=== PATIENT | female | born 1945 | race Caucasian/White ===

== ENCOUNTER 2016-09-27 10:32 | Outpatient (CLI) | payer MEDICARE | END 2016-09-27 10:33 | disposition home or self-care (01) | DX: Z00.00 Encounter for general adult medical examination without abnormal findings (principal); E55.9 Vitamin D deficiency, unspecified; E78.5 Hyperlipidemia, unspecified; E03.2 Hypothyroidism due to medicaments and other exogenous substances ==

== ENCOUNTER 2016-09-29 13:36 | Outpatient (CLI) | payer MEDICARE | END 2016-09-29 13:37 | disposition home or self-care (01) | DX: Z12.31 Encounter for screening mammogram for malignant neoplasm of breast (principal) ==

== ENCOUNTER 2017-07-27 09:20 | Outpatient (CLI) | payer MEDICARE ==
[2017-07-27 18:00] LABS: CHOL/HDL RATIO 3.3 (<4.4); CHOLESTEROL 193 mg/dL; HDL CHOLESTEROL 59 mg/dL; LDL/HDL RATIO 1.3 (<4.4); TRIGLYCERIDES 273 mg/dL; VLDL CHOLESTEROL 55 mg/dL
== END 2017-07-27 09:21 | disposition home or self-care (01) ==
LOC: LAB.F 09:20
PROVIDERS: ATTEND Internal Medicine
DX: E55.9 Vitamin D deficiency, unspecified (principal); E78.5 Hyperlipidemia, unspecified
CPT/HCPCS: 36415; 80061; 82306; 86376

== ENCOUNTER 2017-08-12 14:25 | Outpatient (CLI) | payer MEDICARE ==
--- NOTE | 2017-08-14 09:21 | MRI Report ---
EXAM: RIGHT SHOULDER MRI WITHOUT CONTRAST EXAM DATE: 08/12/2017 04:06 PM. CLINICAL HISTORY: Right shoulder pulled towards the ground. Pain with decreased range of motion. COMPARISON: None. TECHNIQUE: Multiplanar, multisequence T1-weighted and fluid-sensitive sequences of the shoulder witho ut contrast. Other: None. FINDINGS: Acromioclavicular Region: The acromion is type II. There is moderate acromioclavicular joint osteoart hritis. Moderate fluid in the subacromial bursa. Glenohumeral Region: There is mild thinning of the hyaline cartilage of the glenohumeral joint. There are subchondral cysts in the anterior and posterior surfaces of the humeral head. The bony glenoid a ppears unremarkable. There is a moderate-sized joint effusion with a large subscapular bursal effusio n. Bone Marrow: See above. Labrum: The labrum is unremarkable on this nonarthrographic study. Musculature/Rotator Cuff: There is thickening and increased T2 signal in supraspinatus consistent wit h tendinosis. There is a high-grade partial-thickness tear of the musculotendinous junction of supras pinatus measuring approximately 5 x 6 mm. There is a separate, 4 mm x 4 mm partial-thickness tear of the insertional fibers of supraspinatus which almost extends through the full-thickness of the tendon . There is thickening and increased T2 signal in the subscapularis consistent with moderate tendinosi s. There is a high-grade partial-thickness tear of the deep fibers at the insertion. Biceps Tendon: There is increased T2 signal in the long head of biceps with partial thickness tearing in the rotator interval. The tendon is slightly medially subluxed. Other: The subcutaneous tissues are unremarkable. IMPRESSION: 1. Moderate acromioclavicular joint osteoarthritis. 2. There is a moderate-sized joint effusion with fluid in the subscapularis bursa. 3. There is mild glenohumeral osteoarthritis. 4. Supraspinatus tendinosis with 2 high-grade partial-thickness tears. 5. Subscapularis tendinosis with high-grade partial thickness tear of the deep fibers. 6. Tendinosis and partial-thickness tearing of the proximal long head of biceps with mild medial subl uxation. [facility] MUSCULOSKE[facility] SECTION Referring Provider Line: [phone] SITE ID: [id number]
== END 2017-08-12 14:26 | disposition home or self-care (01) ==
LOC: DI 14:25
PROVIDERS: ATTEND Internal Medicine
DX: M19.011 Primary osteoarthritis, right shoulder (principal); M25.411 Effusion, right shoulder; M75.101 Unspecified rotator cuff tear or rupture of right shoulder, not specified as traumatic; S46.111A Strain of muscle, fascia and tendon of long head of biceps, right arm, initial encounter

== ENCOUNTER 2018-08-08 12:59 | Outpatient (CLI) | payer MEDICARE, MEDICAID ==
--- NOTE | 2018-08-08 14:27 | XRAY Report ---
Reason: COUGH Procedure Date: 08/08/2018 Accession Number: [id number] / [id number] Procedure: XR - Chest 2 View X-Ray CPT Code: 48485 FULL RESULT: EXAM: CHEST RADIOGRAPHY EXAM DATE: 08/08/2018 01:40 PM. CLINICAL HISTORY: Cough. COMPARISON: None. TECHNIQUE: 2 views. FINDINGS: Lungs/Pleura: No focal opacities evident. No pleural effusion. No pneumothorax. Flattened diaphragms and markedly increased lung volumes, possibly COPD. Mediastinum: Heart and mediastinal contour within normal limits. Other: None. IMPRESSION: Question COPD with no focal consolidation at this time. [facility]
== END 2018-08-08 13:00 | disposition home or self-care (01) ==
LOC: DI 12:59
PROVIDERS: ATTEND Nurse Practitioner Family
DX: R05 Cough (principal)
CPT/HCPCS: 71046

== ENCOUNTER 2018-08-12 12:57 | Outpatient (CLI) | payer MEDICARE, MEDICAID | END 2018-08-12 12:58 | disposition home or self-care (01) | LOC: RT 12:57 | PROVIDERS: ATTEND Nurse Practitioner Family | DX: R05 Cough (principal) | CPT/HCPCS: 94010 ==

== ENCOUNTER 2018-08-21 15:23 | Observation (INO) | payer MEDICARE, MEDICAID ==
[2018-08-21 15:59] LABS: BILIRUBIN,URINE NEGATIVE (NEGATIVE); GLUCOSE, URINE (UA) NEGATIVE (NEGATIVE); KETONES,URINE (UA) NEGATIVE (NEGATIVE); LEUKOCYTE ESTERASE, URINE NEGATIVE (NEGATIVE); NITRITE,URINE NEGATIVE (NEGATIVE); OCCULT BLOOD,URINE NEGATIVE (NEGATIVE); PH,URINE 5.5 PH (5.0-7.5); PROTEIN,URINE NEGATIVE (NEGATIVE); UROBILINOGEN,URINE 0.2 (NORMAL) E.U./dL (NORMAL)
[2018-08-21 16:04] LABS: CLARITY,URINE CLEAR (CLEAR)
--- NOTE | 2018-08-21 16:08 | ED Physician Documentation ---
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 METAL WELDER: section - Present Medications Home Medications: Ambulatory Orders Medication Instructions Recorded Confirmed No Known Home Medications 08/21/18 08/21/18 - Allergies Allergies/Adverse Reactions: Allergies Allergy/AdvReac Type Severity Reaction Status Date / Time ciprofloxacin [From Cipro] AdvReac Hives Verified 08/21/18 15:30 - Social History Does the pt smoke?: No Smoking Status: Never smoker Does the pt drink ETOH?: Yes Does the pt have substance abuse?: No - Immunizations Immunizations are current?: Yes - POLST Patient has POLST: No PD ED PE NORMAL - Vitals Vital signs reviewed: Yes - General General: Alert and oriented X 3 - HEENT HEENT: PERRL, EOMI, Other (no field cut no dyscongugate EOMI, ) - Neck Neck: Supple, no meningeal sign - Cardiac Cardiac: RRR - Respiratory Respiratory: No respiratory distress - Abdomen Abdomen: Soft, Non tender - Neuro Neuro: Alert and oriented X 3, No sensory deficit, Normal speech. 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 (slight facial droop not new per pt, double vison but no field cut, nl EOMI, nl hearing, speech nl now), No motor deficit (face is baseline) Eye Opening: Spontaneous Motor: Obeys Commands Verbal: Oriented GCS Score: 15 Results - Vitals Vitals: Vital Signs - 24 hr 08/21/18 15:26 Temperature 36.8 C Heart Rate 85 Respiratory 16 Rate Blood Pressure 144/89 H O2 Saturation 99 Oxygen O2 Source Room air - EKG (time done) 1558 Rate: Rate (enter#) Rhythm: NSR Intervals: Normal MT QRS: Normal Ischemia: Normal ST segments - Labs Labs: Laboratory Tests 08/21/18 08/21/18 08/21/18 15:50 16:21 16:21 WBC 5.5 RBC 4.62 Hgb 14.1 Hct 42.8 MCV 92.7 MCH 30.6 MCHC 33.0 RDW 13.9 Plt Count 204 MPV 7.4 L Neut # (Auto) 3.9 Lymph # (Auto) 0.9 L Crane # (Auto) 0.4 Eos # (Auto) 0.2 Baso # (Auto) 0.0 Absolute Nucleated RBC 0.00 Nucleated RBC % 0.1 PT 10.9 INR 1.0 Sodium Potassium Chloride Carbon Dioxide Anion Gap BUN Creatinine Estimated GFR (MDRD) Glucose Calcium Urine Color YELLOW Urine Clarity CLEAR Urine pH 5.5 Ur Specific [place] >=1.030 H Urine Protein NEGATIVE Urine Glucose (UA) NEGATIVE Urine Ketones NEGATIVE Urine Occult Blood NEGATIVE Urine Nitrite NEGATIVE Urine Bilirubin NEGATIVE Urine Urobilinogen 0.2 (NORMAL) Ur Leukocyte Esterase NEGATIVE Ur Microscopic Review NOT INDICATED Urine Culture Comments NOT INDICATED 08/21/18 16:21 WBC RBC Hgb Hct MCV MCH MCHC RDW Plt Count MPV Neut # (Auto) Lymph # (Auto) Crane # (Auto) Eos # (Auto) Baso # (Auto) Absolute Nucleated RBC Nucleated RBC % PT INR Sodium 134 L Potassium 3.4 L Chloride 101 Carbon Dioxide 23 Anion Gap 10.0 BUN 14 Creatinine 0.8 Estimated GFR (MDRD) 71 L Glucose 87 Calcium 9.1 Urine Color Urine Clarity Urine pH Ur Specific Ren[place] Urine Protein Urine Glucose (UA) Urine Ketones Urine Occult Blood Urine Nitrite Urine Bilirubin Urine Urobilinogen Ur Leukocyte Esterase Ur Microscopic Review Urine Culture Comments - Rads (name of study) CTH Radiology: See rad report (no acute process) PD MEDICAL DECISION MAKING - ED course ED course: double vision for approx 24 hr and int expressive aphasia CTH neg EKG NSR labs fine merits MRI echo vessel imaging serial neuro exam spoke to hospitalist Dr Ayala at [address] in obs Departure - Departure Disposition: ED Place in Observation Clinical Impression: Diplopia Condition: Good Discharge Date/Time: 08/21/18 19:05 NIHSS - Time Time: 16:00 - Level of Consciousness Level of consciousness: (0) Alert, Keenly responsive LOC Questions: (0) Answers both Q's correct LOC Commands: (0) Performs both correctly - Gaze Best Gaze: (0) Normal - Visual Visual: (0) No loss - Facial Palsy Facial Palsy: (1) Minor paralysis (not new) - Motor Arms (both separate) Motor Arm (right): (0) No drift Motor Arm (left): (0) No drift - Motor Legs (both separate) Motor Leg (right): (0) No drift Motor Leg (left): (0) No drift - Limb Ataxia Limb Ataxia: (0) Absent - Sensory Sensory: (0) Normal - Best Language Best Language: (0) No aphasia - Dysarthria Dysarthria: (0) Normal - Extinction and Inattention (formally neg Extinction and inattention: (0) No abnormality - Total Score/Results Total Score/Result: 1
[2018-08-21 16:29] LABS: BASOPHILS % (AUTO) 0.6 %; EOSINOPHILS # (AUTO) 0.2 10^3/uL (0.0-0.7); EOSINOPHILS % (AUTO) 4.4 %; HGB - HEMOGLOBIN 14.1 g/dL (12.0-16.0); LYMPHOCYTES # (AUTO) 0.9 10^3/uL (1.5-3.5); LYMPHOCYTES % (AUTO) 15.9 %; MEAN CORPUSCULAR HEMOGLOBIN 30.6 pg (27.0-31.0); MEAN CORPUSCULAR VOLUME 92.7 fL (81.0-99.0); MEAN PLATELET VOLUME 7.4 fL (7.9-10.8); MONOCYTES # (AUTO) 0.4 10^3/uL (0.0-1.0); MONOCYTES % (AUTO) 7.7 %; NEUTROPHILS # (AUTO) 3.9 10^3/uL (1.5-6.6); NEUTROPHILS % (AUTO) 71.4 %; PLT - PLATELET COUNT 204 10^3/uL (130-450); RED BLOOD COUNT 4.62 10^6/uL (4.20-5.40); RED CELL DISTRIBUTION WIDTH 13.9 % (12.0-15.0); WHITE BLOOD COUNT 5.5 x10^3/uL (4.8-10.8)
[2018-08-21 16:38] LABS: CALCIUM 9.1 mg/dL (8.5-10.3); CREATININE 0.8 mg/dL (0.4-1.0)
[2018-08-21 16:49] LABS: PT - PROTHROMBIN TIME 10.9 secs (9.9-12.6)
--- NOTE | 2018-08-21 17:19 | CT Report ---
Reason: double vision Procedure Date: 08/21/2018 Accession Number: [id number] / [id number] Procedure: CT - Head W/O CPT Code: FULL RESULT: EXAM: CT HEAD EXAM DATE: 08/21/2018 05:09 PM. CLINICAL HISTORY: Double vision. COMPARISON: None. TECHNIQUE: Multiaxial CT images were obtained from the foramen magnum to the vertex. Reformats: Sagittal and coronal. IV contrast: None. In accordance with CT protocol optimization, one or more of the following dose reduction techniques were utilized for this exam: automated exposure control, adjustment of mA and/or KV based on patient size, or use of iterative reconstructive technique. FINDINGS: Parenchyma: No intraparenchymal hemorrhage. No evidence of mass, midline shift, or CT findings of acute infarction. Humphries-white differentiation is distinct. Diffuse chronic microangiopathic white matter changes are evident. Extraaxial Spaces: Normal for age. No subdural or epidural collections identified. Ventricles: The ventricles and cortical sulci are enlarged, consistent with age-related tissue loss. Sinuses and orbits: Imaged paranasal sinuses, orbits, and mastoids show no significant abnormality. Bones: No evidence of fracture or calvarial defect. Other: Focal 10 mm plaque-like right paracentral occipital scalp/subcutaneous fat calcification of uncertain etiology or significance. IMPRESSION: Generalized age-related cortical atrophic changes without evidence of acute intracranial abnormality. [facility]
[2018-08-21] MEDS ORDERED: SODIUM CHLORIDE FLUSH 0.9% 10 ML SYRINGE IVP PRN (17:41)
[2018-08-21] MEDS ORDERED: PROMETHAZINE 25 MG/1 ML VIAL IM PRN (17:41)
[2018-08-21] MEDS ORDERED: PROCHLORPERAZINE 10 MG/2 ML VIAL IVP PRN (17:41)
[2018-08-21] MEDS ORDERED: IBUPROFEN 600 MG TABLET PO PRN (17:41)
[2018-08-21] MEDS ORDERED: ACETAMINOPHEN 325 MG TABLET PO PRN (17:41)
[2018-08-21] MEDS ORDERED: oxyCODONE 5 MG TABLET PO PRN ×2 (17:41)
[2018-08-21] MEDS ORDERED: ONDANSETRON 4 MG/2 ML VIAL IVP PRN (17:41)
--- NOTE | 2018-08-21 17:50 | HISTORY & PHYSICAL EXAMINATION ---
Chief Complaint - Chief Complaint Chief Complaint: Seeing double History of Present Illness - Admitted From Admitted From:: Emergency Department - History Obtained From Records Reviewed: Yes History obtained from: Patient Exam Limitations: None - History of Present Illness HPI Comment/Other: Patient is a 73-year-old female with a past medical history significant for ulcerative colitis status post colectomy and ileostomy, recent diagnosis of COPD and tremor who presents to the emergency department with a chief complaint of seeing double. The patient states that she was in her normal state of health yesterday watching Netflix. When she began to notice that she was seeing double when she would look down toward the bottom of the screen. She states that she was having a difficult time focusing on objects when she would look at them outside her window. She also states that she noticed some tingling in her fingers but states that is not new. She states that she had some slurred speech and was having word finding difficulties. She states that the symptoms got better over time. She also states that she was having difficulty with her balance and was bumping into the wall. She states that she felt as though she was drunk. She states that she had not drank any alcohol. She states that today when she was going to her friend's place for [employer] dinner she noticed that the center divider in the road had 4 lines instead of 2 but she was able to drive to her friend's home. Her friends became concerned and brought her to the emergency department. The patient denies any fevers or chills. She denies any headache. She denies any focal weakness. She denies any neck stiffness. She denies any back pain. She denies any runny nose or sore throat. She denies any chest pain or shortness of air. She denies any orthopnea or PND. She denies any urinary urgency frequency or dysuria. She denies any abdominal pain nausea, vomiting or diarrhea. On presentation to the emergency department the patient was afebrile and had a normal heart rate. She was hypertensive with a blood pressure of 144/89 and o therwise was saturating well on room air. She underwent routine lab work which revealed a mild hyponatremia and hypo-kalemia. The remainder of the patient's lab tests were within normal limits. The patient's urinalysis was negative. The patient did undergo an EKG which showed a normal sinus rhythm with no ST elevations or ischemic changes. The patient also underwent a CT of her head which revealed generalized age-related cortical atrophic changes without evidence of acute intracranial abnormality. The patient continued to have persistence of this double vision when she would look towards the bottom of her visual field but states that if she looked upward that the double vision went away. She did not have any further symptoms of expressive aphasia or slurred speech or ataxia. The patient was found to have a facial droop on examination however she states that this was from a broken jaw and was old. She had no other focal neurologic deficits. It was felt by the emergency room physician that the patient should be observed and undergo further imaging including a CT angiogram and MRI as well as an echocardiogram. The patient was placed in observation for further workup for possible cerebrovascular accident. 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 She has 1 child. 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 The patient was a former smoker and smoked for about 5 years she smoked a pack a day but quit 47 years ago. The patient does drink socially but is never been a heavy drinker. She denies any illicit drug use. - POLST Patient has POLST: No POLST Status: Full Code Meds/Allgy - Home Medications Home Medications: Ambulatory Orders Medication Instructions Recorded Confirmed No Known Home Medications 08/21/18 08/21/18 - Allergies Allergies/Adverse Reactions: Allergies Allergy/AdvReac Type Severity Reaction Status Date / Time ciprofloxacin [From Cipro] AdvReac Hives Verified 08/21/18 15:30 Review of Systems - Other Findings Other Findings: A comprehensive review of systems was performed the pertinent positives and negatives are stated above in the HPI and the remainder of the review of systems is negative. Prior Level of Functionality: Fully independent with all her activities of daily living. Exam - Vital Signs Reviewed Vital Signs: Yes Vital Signs: Vital Signs x48h Temp Pulse Resp BP Pulse Ox 08/21/18 15:26 36.8 C 85 16 144/89 H 99 - Physical Exam General Appearance: positive: No acute distress, Alert Eyes Bilateral: positive: Normal inspection, PERRL, EOMI, No lid inflammation, Conjunctivae nml, No scleral icterus ENT: positive: ENT inspection nml, Pharynx nml, No signs of dehydration. negative: Purulent nasal drainage, Pharyngeal erythema, Oral lesions Neck: positive: Nml inspection, Thyroid nml, No JVD, Trachea midline. negative: Thyromegaly, Lymphadenopathy (R), Lymphadenopathy (L), Stiff neck, Carotid bruit, Tracheal deviation Respiratory: positive: Chest non-tender, No respiratory distress, Breath sounds nml. negative: Wheezes, Rales, Rhonchi Cardiovascular: positive: Regular rate & rhythm, No murmur, No gallop Peripheral Pulses: positive: 2+ Abdomen: positive: Non-tender, No organomegaly, Nml bowel sounds, No distention. negative: Guarding, Rebound, Hepatomegaly Back: positive: Nml inspection. negative: CVA tenderness (R), CVA tenderness (L) Skin: positive: Color nml, No rash, Warm, Dry. negative: Cyanosis, Diaphoresis, Pallor Extremities: positive: Non-tender, Full ROM, Nml appearance, No pedal edema Neurologic/Psychiatric: positive: Oriented x3, CN's nml (2-12), Motor nml, Sensation nml, Mood/affect nml, Facial droop (Mild right facial droop secondary to broken jaw.) Conclusion/Plan - Problem List (1) Diplopia Conclusion/Plan: The patient presents with 1 day of diplopia which has been persistent. The patient also had some intermittent symptoms of slurred speech, expressive aphasia and ataxia. The patient's diplopia alone is unlikely to be due to a CVA but given her other symptoms there is some concern that patient may have had a T IA or stroke. Therefore the patient is being placed in observation for rule out of CVA. Plan: Aspirin Lipitor CTA head and neck MRI brain Echo Lipid profile [facility] (2) Hypokalemia Conclusion/Plan: Please potassium and monitor potassium. (3) Hyponatremia Conclusion/Plan: Appears to be hypovolemic hyponatremia. Patient will be given IV fluids and will continue to monitor the sodium. (4) Hypertension Conclusion/Plan: Patient denies any history of hypertension. Patient's blood pressure is elevated on presentation to the emergency department. If the patient is having a stroke it may be elevated secondary to the stroke. For now we will allow for permissive hypertension. We will continue to monitor the blood pressure while the patient is hospitalized. Qualifiers: Hypertension type: unspecified Qualified Code(s): I10 - Essential (primary) hypertension - Lab Results Lab results reviewed: Yes Fish Bones: 08/21/18 16:21 08/21/18 16:21 Other Lab Results: Laboratory Results WBC 5.5 x10^3/uL (4.8-10.8) 08/21/18 16:21 RBC 4.62 10^6/uL (4.20-5.40) 08/21/18 16:21 Hgb 14.1 g/dL (12.0-16.0) 08/21/18 16:21 Hct 42.8 % (37.0-47.0) 08/21/18 16:21 MCV 92.7 fL (81.0-99.0) 08/21/18 16:21 MCH 30.6 pg (27.0-31.0) 08/21/18 16:21 MCHC 33.0 g/dL (32.0-36.0) 08/21/18 16:21 RDW 13.9 % (12.0-15.0) 08/21/18 16:21 Plt Count 204 10^3/uL (130-450) 08/21/18 16:21 MPV 7.4 fL (7.9-10.8) L 08/21/18 16:21 Neut # (Auto) 3.9 10^3/uL (1.5-6.6) 08/21/18 16:21 Lymph # (Auto) 0.9 10^3/uL (1.5-3.5) L 08/21/18 16:21 [place] # (Auto) 0.4 10^3/uL (0.0-1.0) 12/25/18 16:21 Eos # (Auto) 0.2 10^3/uL (0.0-0.7) 08/21/18 16:21 Baso # (Auto) 0.0 10^3/uL (0.0-0.1) 08/21/18 16:21 Absolute Nucleated RBC 0.00 x10^3/uL 08/21/18 16:21 Nucleated RBC % 0.1 /100WBC 08/21/18 16:21 PT 10.9 secs (9.9-12.6) 08/21/18 16:21 INR 1.0 (0.8-1.2) 08/21/18 16:21 Sodium 134 mmol/L (135-145) L 08/21/18 16:21 Potassium 3.4 mmol/L (3.5-5.0) L 08/21/18 16:21 Chloride 101 mmol/L (101-111) 08/21/18 16:21 Carbon Dioxide 23 mmol/L (21-32) 08/21/18 16:21 Anion Gap 10.0 (6-13) 08/21/18 16:21 BUN 14 mg/dL (6-20) 08/21/18 16:21 Creatinine 0.8 mg/dL (0.4-1.0) 08/21/18 16:21 Estimated GFR (MDRD) 71 (>89) L 08/21/18 16:21 Glucose 87 mg/dL (70-100) 08/21/18 16:21 Calcium 9.1 mg/dL (8.5-10.3) 08/21/18 16:21 Urine Color YELLOW 08/21/18 15:50 Urine Clarity CLEAR (CLEAR) 08/21/18 15:50 Urine pH 5.5 PH (5.0-7.5) 08/21/18 15:50 Ur Specific [place] >=1.030 (1.002-1.030) H 08/21/18 15:50 Urine Protein NEGATIVE mg/dL (NEGATIVE) 08/21/18 15:50 Urine Glucose (UA) NEGATIVE mg/dL (NEGATIVE) 08/21/18 15:50 Urine Ketones NEGATIVE mg/dL (NEGATIVE) 08/21/18 15:50 Urine Occult Blood NEGATIVE (NEGATIVE) 08/21/18 15:50 Urine Nitrite NEGATIVE (NEGATIVE) 08/21/18 15:50 Urine Bilirubin NEGATIVE (NEGATIVE) 08/21/18 15:50 Urine Urobilinogen 0.2 (NORMAL) E.U./dL (NORMAL) 08/21/18 15:50 Ur Leukocyte Esterase NEGATIVE (NEGATIVE) 08/21/18 15:50 Ur Microscopic Review NOT INDICATED 08/21/18 15:50 Urine Culture Comments NOT INDICATED 08/21/18 15:50 - Diagnostic Imaging Results Diagnostic Imaging Results: positive: Final report reviewed Diagnostic Imaging Results Comments: CT head Impression: Generalized age-related cortical atrophic changes without evidence of acute int racranial abnormality. - EKG Results EKG Interpreted Independently: Yes EKG Findings: Sinus rhythm no ST elevations or ischemic Changes. Core Measures - Anticipated LOS I expect patient to be DC'd or transferred within 96 hours.: Yes - DVT/VTE - Prophylaxis VTE/DVT Prophylaxis med ordered at admit?: Yes
[2018-08-21] MEDS ORDERED: IOVERSOL 320 100 ML VIAL IVP ONE ×2 (18:33→20:45)
[2018-08-21] MEDS: ASPIRIN 325 MG TABLET PO SCH (19:29)
[2018-08-21] MEDS: NS W/20 MEQ KCL 1,000 ML IV SCH (19:37)
[2018-08-21] MEDS ORDERED: ATORVASTATIN 40 MG TABLET PO SCH (21:00)
[2018-08-21] MEDS: FAMOTIDINE 20 MG TABLET PO SCH (21:44)
[2018-08-21] MEDS: SODIUM CHLORIDE FLUSH 0.9% 10 ML SYRINGE IVP SCH (23:34)
--- NOTE | 2018-08-22 00:07 | CT Report ---
Reason: Diplopia, expressive aphasia Procedure Date: 08/21/2018 Accession Number: [id number] / [id number] Procedure: CT - Neck Angio CPT Code: FULL RESULT: EXAM: CT ANGIOGRAM HEAD AND NECK CT SCAN HEAD WITHOUT AND WITH CONTRAST EXAM DATE:08/21/2018 09:17 PM. CLINICAL HISTORY:Diplopia, expressive aphasia. COMPARISON:Noncontrast brain CT from earlier today. TECHNIQUE: Routine axial helical CTA imaging was performed from the aortic arch through the [place] of [place]. Routine axial CT imaging of the head was performed prior to and following contrast administration. Reconstructions: Routine multiplanar 3D MIP reconstructions. IV contrast: 80 mL Optiray 320. NASCET Criteria are used for stenosis measurements. In accordance with CT protocol optimization, one or more of the following dose reduction techniques were utilized for this exam: automated exposure control, adjustment of mA and/or KV based on patient size, or use of iterative reconstructive technique. FINDINGS: On the noncontrast brain CT images, no acute interval change has occurred since the brain CT from earlier today. No abnormal brain parenchymal enhancement is appreciated on postcontrast images. CT ANGIOGRAM EXTRACRANIAL CIRCULATION: The visualized arch is unremarkable. Great vessels are patent and unremarkable. Right Carotid: The common, internal, and external carotid arteries are patent. Mild calcified plaque is present at the carotid bifurcation without hemodynamically significant stenosis. Left Carotid: The common, internal, and external carotid arteries are patent. Minimal calcified plaque is noted at the carotid bifurcation without hemodynamically significant stenosis. Vertebrals: The vertebrobasilar system shows no stenosis, dissection, aneurysm, or significant atherosclerotic disease. The left vertebral artery is congenitally hypoplastic and arises directly from the aortic arch, a normal variant. CT ANGIOGRAM INTRACRANIAL CIRCULATION: The internal carotid arteries are patent from the superior cervical to the supraclinoid portions. Mild calcified plaque is present in the bilateral carotid siphons without high-grade stenosis. The bilateral A1, A2, M1, and M2 segments are patent. No aneurysm is seen in the expected location of the anterior communicating artery. In the posterior circulation, the bilateral vertebral arteries are present with right-sided dominance. The PICAs are well-demonstrated. The basilar artery is widely patent throughout its course to the terminus. There is a superiorly directed aneurysm arising from the mid basilar artery with a 4 mm neck and 2 mm dome (image 77, series 12). There is normal contrast opacification in the superior cerebellar arteries and posterior cerebral arteries. origin of the right posterior cerebral artery is noted, a normal variant. A robust left posterior communicating artery is present. The dural venous sinuses are patent. Other: Mild bilateral apical pleural thickening is noted. The airway is patent. Mild degenerative changes are present throughout the cervical spine. There is suggestion of enhancing nodule along the lateral aspect of the left thyroid lobe measuring 1 cm (image 160, series 2). IMPRESSION: 1. No acute interval change since the brain CT from earlier today. 2. No abnormal brain parenchymal enhancement. 3. Patent dural venous sinuses. 4. 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 5. No hemodynamically significant stenosis in the extracranial arteries. [facility]
[2018-08-22] MEDS: NS W/20 MEQ KCL 1,000 ML IV SCH (05:05)
[2018-08-22 05:57] LABS: BASOPHILS % (AUTO) 0.6 %; EOSINOPHILS # (AUTO) 0.4 10^3/uL (0.0-0.7); EOSINOPHILS % (AUTO) 7.7 %; HGB - HEMOGLOBIN 13.2 g/dL (12.0-16.0); LYMPHOCYTES % (AUTO) 21.2 %; MEAN CORPUSCULAR HEMOGLOBIN 30.5 pg (27.0-31.0); MEAN CORPUSCULAR HGB CONC 32.9 g/dL (32.0-36.0); MEAN CORPUSCULAR VOLUME 92.6 fL (81.0-99.0); MEAN PLATELET VOLUME 7.5 fL (7.9-10.8); MONOCYTES # (AUTO) 0.5 10^3/uL (0.0-1.0); MONOCYTES % (AUTO) 10.3 %; NEUTROPHILS # (AUTO) 2.8 10^3/uL (1.5-6.6); NEUTROPHILS % (AUTO) 60.2 %; PLT - PLATELET COUNT 178 10^3/uL (130-450); RED BLOOD COUNT 4.31 10^6/uL (4.20-5.40); RED CELL DISTRIBUTION WIDTH 13.6 % (12.0-15.0); WHITE BLOOD COUNT 4.7 x10^3/uL (4.8-10.8)
[2018-08-22 06:00] LABS: PT - PROTHROMBIN TIME 11.5 secs (9.9-12.6)
[2018-08-22 06:13] LABS: ALBUMIN 3.3 g/dL (3.2-5.5); ALBUMIN/GLOBULIN RATIO 1.2 (1.0-2.2); BILIRUBIN,TOTAL 0.7 mg/dL (0.2-1.0); CALCIUM 8.6 mg/dL (8.5-10.3); CREATININE 0.7 mg/dL (0.4-1.0)
[2018-08-22 06:17] LABS: CHOL/HDL RATIO 3.4 (<4.4); CHOLESTEROL 208 mg/dL; HDL CHOLESTEROL 61 mg/dL; LDL CHOLESTEROL,CALCULATED 107 mg/dL; LDL/HDL RATIO 1.8 (<4.4); VLDL CHOLESTEROL 40 mg/dL
[2018-08-22] MEDS: FAMOTIDINE 20 MG TABLET PO SCH (08:50)
[2018-08-22] MEDS: ASPIRIN 325 MG TABLET PO SCH (08:50)
[2018-08-22] MEDS: SODIUM CHLORIDE FLUSH 0.9% 10 ML SYRINGE IVP SCH (08:51)
[2018-08-22] MEDS ORDERED: POLYETHYLENE GLYCOL 3350 17 GM PACKET PO SCH (09:00)
[2018-08-22] MEDS ORDERED: ENOXAPARIN 40 MG/0.4 ML SYRINGE SUBQ SCH (09:00)
[2018-08-22 11:30] VITALS: BP 133/87
--- NOTE | 2018-08-22 12:08 | Discharge Plan ---
Discharge Plan Disposition: 01 Home, Self Care Condition: Fair Prescriptions: Aspirin [Darell] 325 mg PO DAILYWM #30 tablet Atorvastatin [Lipitor] 80 mg PO QPM #30 tablet Diet: Regular Activity Restrictions: Activity as Tolerated (IF you are comfortable driving please use a patch over one eye when you drive) Shower Restrictions: No Driving Restrictions: No Weight Bearing: Full Weight Instruction Topics: Atorvastatin tablets Additional Instructions or Follow Up instructions: You presented to our emergency department due to double vision which started 1 day prior to coming to the ER. We worked you up for possible stroke with a CT of your head, CT angiogram of your head and neck and echocardiogram. 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 We wanted to do an MRI unfortunately our MRI machine was down. We spoke with neurology at [facility] Dr. 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 We recommend that you follow-up with your primary care physician as soon as possible to get an outpatient MRI. The neurologist recommended that depending on the results of the MRI you should follow-up with neurology or ophthalmology as an outpatient. He stated if the MRI does show a stroke then you would need to follow-up with neurology but if there is no stroke then please follow-up with ophthalmology. The neurologist also stated that you may legally drive with a patch over one eye however if you are not comfortable with this he recommended not driving. He did also state that typically a 4th nerve palsy like this does improve over weeks and you may have resolution of your symptoms. The neurologist also recommended that you be started on aspirin and Lipitor for prevention of future strokes. I have prescribed to you aspirin and Lipitor and it has been sent to your pharmacy. Please make sure to follow-up with your primary care physician so that you can get scheduled for an MRI and then further follow-up as needed. No Smoking: If you smoke, Please STOP! Call for help. Follow-up with: SRAVAN FIGUEROA MD [Primary Care Provider] -
--- NOTE | 2018-08-22 13:08 | DISCHARGE SUMMARY ---
Discharge Summary Admit Date: 08/21/18 Discharge Date: 08/22/18 Discharging Provider: Shawn Ayala MD Primary Care Provider: Elena Singleton MD Code Status: Attempt Resuscitation Condition at Discharge: Fair Discharge Disposition: 01 Home, Self Care - DIAGNOSES Admission Diagnoses: 1. Diplopia 2. Hypokalemia 3. Hyponatremia 4. Hypertension Discharge Diagnoses with Status of Each Condition: 1. Diplopia: Stable 2. Hypokalemia: Resolved 3. Hyponatremia: Resolved 4. Hypertension: Stable - HPI History of Present Illness: Patient is a 73-year-old female with a past medical history significant for ulcerative colitis status post colectomy and ileostomy, recent diagnosis of COPD and tremor who presents to the emergency department with a chief complaint of seeing double. The patient states that she was in her normal state of health yesterday watching Netflix. When she began to notice that she was seeing double when she would look down toward the bottom of the screen. She states that she was having a difficult time focusing on objects when she would look at them outside her window. She also states that she noticed some tingling in her fingers but states that is not new. She states that she had some slurred speech and was having word finding difficulties. She states that the symptoms got better over time. She also states that she was having difficulty with her b alance and was bumping into the wall. She states that she felt as though she was drunk. She states that she had not drank any alcohol. She states that today when she was going to her friend's place for [employer] dinner she noticed that the center divider in the road had 4 lines instead of 2 but she was able to drive to her friend's home. Her friends became concerned and brought her to the emergency department. The patient denies any fevers or chills. She denies any headache. She denies any focal weakness. She denies any neck stiffness. She denies any back pain. She denies any runny nose or sore throat. She denies any chest pain or shortness of air. She denies any orthopnea or PND. She denies any urinary urgency frequency or dysuria. She denies any abdominal pain nausea, vomiting or diarrhea. On presentation to the emergency department the patient was afebrile and had a normal heart rate. She was hypertensive with a blood pressure of 144/89 and otherwise was saturating well on room air. She underwent routine lab work which revealed a mild hyponatremia and hypo-kalemia. The remainder of the patient's lab tests were within normal limits. The patient's urinalysis was negative. The patient did undergo an EKG which showed a normal sinus rhythm with no ST elevations or ischemic changes. The patient also underwent a CT of her head which revealed generalized age-related cortical atrophic changes without evidence of acute intracranial abnormality. The patient continued to have persistence of this double vision when she would look towards the bottom of her visual field but states that if she looked upward that the double vision went away. She did not have any further symptoms of expressive aphasia or slurred speech or ataxia. The patient was found to have a facial droop on examination however she states that this was from a broken jaw and was old. She had no other focal neurologic deficits. It was felt by the emergency room physician that the patient should be observed and undergo further imaging including a CT angiogram and MRI as well as an echocardiogram. The patient was placed in observation for further workup for possible cerebrovascular accident. - HOSPITAL COURSE Hospital Course: The patient was placed in observation for rule out of a cerebrovascular accident. The patient had vertical diplopia. 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 This was not thought to be contributing to her symptoms. The patient did undergo an echocardiogram which showed a normal ejection fraction and some diastolic dysfunction but otherwise no evidence of atrial fibrillation or vegetation. The patient could not undergo MRI as our MRI machine was down. I spoke with neurology on-call at [facility], Dr. 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 He recommended starting the patient on aspirin and Lipitor. He stated that he MRI was not required during this hospitalization but should be done urgently as an outpatient. He stated that if the MRI does show a stroke that the patient needs to follow-up with neurology as an outpatient and if it does not show a stroke she needs to follow-up with ophthalmology. He also stated that typically cranial nerve palsy such as this will get better with time. He asked that we also add inflammatory markers to the patient's workup with ESR and CRP. However given her presentation it was unlikely that she has temporal arteritis as she does not have headache or temporal tenderness. It is unlikely that she has myasthenia gravis as the onset of symptoms would have been more gradual and improved over the course of the day. It was also unlikely to be multiple sclerosis. He also stated that under [facility] law that the patient can drive as long as she wears a patch over one eye if she feels comfortable doing so. The patient was advised to follow-up with her primary care physician as soon as possible to have an MRI scheduled as an outpatient. The patient was given a prescription for aspirin and Lipitor. - ALLERGIES Allergies/Adverse Reactions: Allergies Allergy/AdvReac Type Severity Reaction Status Date / Time ciprofloxacin [From Cipro] AdvReac Hives Verified 08/21/18 15:30 - MEDICATIONS Home Medications: Ambulatory Orders Medication Instructions Recorded Confirmed Aspirin [Darell] 325 mg PO DAILYWM #30 tablet 08/22/18 Atorvastatin [Lipitor] 80 mg PO QPM #30 tablet 08/22/18 - PHYSICAL EXAM AT DISCHARGE General Appearance: positive: No acute distress, Alert Eyes Bilateral: positive: Normal inspection, PERRL, EOMI, No lid inflammation, Conjunctivae nml, No scleral icterus, Other (No obvious ocular motor nerve palsies on examination.) ENT: positive: ENT inspection nml, Pharynx nml, No signs of dehydration. negative: Purulent nasal drainage, Pharyngeal erythema, Oral lesions Neck: positive: Nml inspection, Thyroid nml, No JVD, Trachea midline. negative: Thyromegaly, Lymphadenopathy (R), Lymphadenopathy (L), Stiff neck, Carotid bruit, Tracheal deviation Respiratory: positive: Chest non-tender, No respiratory distress, Breath sounds nml. negative: Wheezes, Rales, Rhonchi Cardiovascular: positive: Regular rate & rhythm, No murmur, No gallop Peripheral Pulses: positive: 2+ Abdomen: positive: Non-tender, No organomegaly, Nml bowel sounds, No distention. negative: Guarding, Rebound, Hepatomegaly Back: positive: Nml inspection. negative: CVA tenderness (R), CVA tenderness (L) Skin: positive: Color nml, No rash, Warm. 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 It is most evident when both eyes are open with closing either eye it is decreased. It is better when she looks downward and worse when she looks upward.) - LABS Result Diagrams: 08/22/18 05:10 08/22/18 05:10 Other Lab Results: Laboratory Results WBC 4.7 x10^3/uL (4.8-10.8) L 08/22/18 05:10 RBC 4.31 10^6/uL (4.20-5.40) 08/22/18 05:10 Hgb 13.2 g/dL (12.0-16.0) 08/22/18 05:10 Hct 40.0 % (37.0-47.0) 08/22/18 05:10 MCV 92.6 fL (81.0-99.0) 08/22/18 05:10 MCH 30.5 pg (27.0-31.0) 08/22/18 05:10 MCHC 32.9 g/dL (32.0-36.0) 08/22/18 05:10 RDW 13.6 % (12.0-15.0) 08/22/18 05:10 Plt Count 178 10^3/uL (130-450) 08/22/18 05:10 MPV 7.5 fL (7.9-10.8) L 08/22/18 05:10 Neut # (Auto) 2.8 10^3/uL (1.5-6.6) 08/22/18 05:10 Lymph # (Auto) 1.0 10^3/uL (1.5-3.5) L 08/22/18 05:10 [place] # (Auto) 0.5 10^3/uL (0.0-1.0) 08/22/18 05:10 Eos # (Auto) 0.4 10^3/uL (0.0-0.7) 08/22/18 05:10 Baso # (Auto) 0.0 10^3/uL (0.0-0.1) 08/22/18 05:10 Absolute Nucleated RBC 0.00 x10^3/uL 08/22/18 05:10 Nucleated RBC % 0.1 /100WBC 08/22/18 05:10 PT 11.5 secs (9.9-12.6) 08/22/18 05:10 INR 1.0 (0.8-1.2) 08/22/18 05:10 Sodium 139 mmol/L (135-145) 08/22/18 05:10 Potassium 3.6 mmol/L (3.5-5.0) 08/22/18 05:10 Chloride 107 mmol/L (101-111) 08/22/18 05:10 Carbon Dioxide 24 mmol/L (21-32) 08/22/18 05:10 Anion Gap 8.0 (6-13) 08/22/18 05:10 BUN 12 mg/dL (6-20) 08/22/18 05:10 Creatinine 0.7 mg/dL (0.4-1.0) 08/22/18 05:10 Estimated GFR (MDRD) 82 (>89) L 08/22/18 05:10 Glucose 93 mg/dL (70-100) 08/22/18 05:10 Calcium 8.6 mg/dL (8.5-10.3) 08/22/18 05:10 Total Bilirubin 0.7 mg/dL (0.2-1.0) 08/22/18 05:10 AST 24 IU/L (10-42) 08/22/18 05:10 ALT 24 IU/L (10-60) 08/22/18 05:10 Alkaline Phosphatase 76 IU/L (42-121) 08/22/18 05:10 Total Protein 6.0 g/dL (6.7-8.2) L 08/22/18 05:10 Albumin 3.3 g/dL (3.2-5.5) 08/22/18 05:10 Globulin 2.7 g/dL (2.1-4.2) 08/22/18 05:10 Albumin/Globulin Ratio 1.2 (1.0-2.2) 08/22/18 05:10 Triglycerides 199 mg/dL (-149) H 08/22/18 05:10 Cholesterol 208 mg/dL (-199) H 08/22/18 05:10 LDL Cholesterol, Calc 107 mg/dL (-129) 08/22/18 05:10 VLDL Cholesterol 40 mg/dL 08/22/18 05:10 HDL Cholesterol 61 mg/dL (60-) 08/22/18 05:10 LDL/HDL Ratio 1.8 (<4.4) 08/22/18 05:10 Cholesterol/HDL Ratio 3.4 (<4.4) 08/22/18 05:10 Urine Color YELLOW 08/21/18 15:50 Urine Clarity CLEAR (CLEAR) 08/21/18 15:50 Urine pH 5.5 PH (5.0-7.5) 08/21/18 15:50 Ur Specific [place] >=1.030 (1.002-1.030) H 08/21/18 15:50 Urine Protein NEGATIVE mg/dL (NEGATIVE) 08/21/18 15:50 Urine Glucose (UA) NEGATIVE mg/dL (NEGATIVE) 08/21/18 15:50 Urine Ketones NEGATIVE mg/dL (NEGATIVE) 08/21/18 15:50 Urine Occult Blood NEGATIVE (NEGATIVE) 08/21/18 15:50 Urine Nitrite NEGATIVE (NEGATIVE) 08/21/18 15:50 Urine Bilirubin NEGATIVE (NEGATIVE) 08/21/18 15:50 Urine Urobilinogen 0.2 (NORMAL) E.U./dL (NORMAL) 08/21/18 15:50 Ur Leukocyte Esterase NEGATIVE (NEGATIVE) 08/21/18 15:50 Ur Microscopic Review NOT INDICATED 08/21/18 15:50 Urine Culture Comments NOT INDICATED 08/21/18 15:50 - DIAGNOSTIC IMAGING Diagnostic Imaging Results: Final report reviewed Diagnostic Imaging Results Comments: CT head Impression: Generalized age-related cortical atrophic changes without evidence of acute intracranial abnormality. CT angiogram head Impression: 1. No acute interval change since brain CT from earlier today. 2. No abnormal brain parenchymal enhancement. 3. Patent dural venous sinuses. 4. 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 5. No hemodynamically significant stenosis in the extracranial arteries. CT angiogram neck Impression: 1. No acute interval changes since the brain CT from earlier today. 2. No abnormal brain parenchymal enhancement. 3. Patent dural venous sinuses. 4. 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 5. No hemodynamically significant stenosis of the extracranial arteries. Echocardiogram Ejection fraction of 55-60%. Impaired relaxation consistent with grade 1 diastolic dysfunction. No regional wall motion abnormalities. There is evidence of a patent foramen ovale versus atrial septal defect with [id number] shunting. Contrast injection of agitated saline was positive for atrial shunt. 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 The case was discussed with [facility] neurology Dr. Terrazas bone puller. He advised that the patient undergo a MRI as an outpatient as our MRI was down in the hospital. He stated that if the MRI shows an acute stroke that the patient needs a referral for neurology otherwise she needs referral for ophthalmology. He advised that the patient can drive as long as she uses a patch over one eye. He also recommended that the patient take aspirin and Lipitor as an outpatient. The patient was found to be slightly hypertensive while she was hospitalized he stated this is a risk factor and should be monitored as an outpatient and patient should be started on antihypertensives if needed. The patient was discharged in stable condition and will follow up with her primary care physician for an MRI. - TIME SPENT Time Spent in Discharge (Minutes): 40
[2018-08-30] MEDS ORDERED: IOVERSOL 320 100 ML VIAL IVP ONE (15:10)
== END 2018-08-22 14:10 | disposition home or self-care (01) ==
LOC: ED 15:23 → MS2 17:41
PROVIDERS: ADMIT Internal Medicine; ATTEND Internal Medicine
DX: H53.2 Diplopia (principal); E87.6 Hypokalemia; E87.1 Hypo-osmolality and hyponatremia; I11.9 Hypertensive heart disease without heart failure; R47.01 Aphasia; R47.81 Slurred speech; R26.0 Ataxic gait; R40.2412 Glasgow coma scale score 13-15, at arrival to emergency department; J44.9 Chronic obstructive pulmonary disease, unspecified; I72.5 Aneurysm of other precerebral arteries; Z93.2 Ileostomy status; Z87.891 Personal history of nicotine dependence
CPT/HCPCS: 36415; 70450; 70496; 70498; 80048; 80053; 80061; 81003; 85025; 85610; 85651; 86140; 93005; 93306; 96365; 96366; 96372; 96376; 99284; A9270; G0378; J1650; Q9967; 81001; 83721; 87086

== ENCOUNTER 2018-09-05 14:03 | Outpatient (CLI) | payer MEDICARE, MEDICAID ==
--- NOTE | 2018-09-05 16:20 | MRI Report ---
Reason: DIPLOPIA Procedure Date: 09/05/2018 Accession Number: [id number] / [id number] Procedure: MRI - Brain W/O CPT Code: FULL RESULT: EXAM: MRI BRAIN WITHOUT CONTRAST EXAM DATE: 09/05/2018 04:03 PM. CLINICAL HISTORY: 73-year-old woman with diplopia. COMPARISON: HEAD W/O 08/21/2018 4:51 PM. TECHNIQUE: Multiplanar, multisequence T1-weighted and fluid-sensitive MR sequences of the brain were performed. Sequences optimized for routine evaluation. Other: None. IV Contrast: None. FINDINGS: Parenchyma: No evidence of acute infarct on diffusion weighted sequence. The parenchyma demonstrates a small defect in the right superolateral chico, likely reflecting a remote lacunar infarct. Moderate burden of nonspecific FLAIR hyperintensities in the deep cerebral and periventricular white matter, most consistent with sequelae of chronic small vessel ischemic disease. The basilar artery indents the ventral chico. No evidence of prior hemorrhage on susceptibility weighted sequence. Pituitary: Unremarkable. Ventricles and Extra-axial Spaces: Ventricles are symmetric and normal in size for age. Extra-axial spaces are unremarkable. Orbits: Globes are intact and normal in shape. Optic nerves and chiasm are symmetric and normal in caliber without definite signal abnormality. Intraconal and extraconal spaces are normal without mass lesion or fat stranding. Cavernous sinuses: Normal in size without evidence of underlying mass lesion. Sinuses: Paranasal sinuses and mastoid air cells are clear. Major Vascular Flow Voids: Intact. The basilar artery is tortuous. IMPRESSION: 1. No acute intracranial abnormality. Specifically, no evidence of acute infarct, hemorrhage, or mass lesion. 2. Small defect in the right superolateral chico, most consistent with remote lacunar infarct. 3. Moderate white matter changes, most consistent with sequelae of chronic small vessel ischemic disease. 4. Orbits are normal. No evidence of mass lesion or inflammatory reaction. RADIA
== END 2018-09-05 14:04 | disposition home or self-care (01) ==
LOC: DI 14:03
PROVIDERS: ATTEND Internal Medicine
DX: H53.2 Diplopia (principal)
CPT/HCPCS: 70551

== ENCOUNTER 2019-07-31 19:49 | Emergency (ER) | payer MEDICARE, MEDICAID ==
[2019-07-31 19:57] VITALS: BP 133/76
[2019-07-31 20:26] LABS: BILIRUBIN,URINE NEGATIVE (NEGATIVE); GLUCOSE, URINE (UA) NEGATIVE (NEGATIVE); KETONES,URINE (UA) NEGATIVE (NEGATIVE); LEUKOCYTE ESTERASE, URINE SMALL (NEGATIVE); NITRITE,URINE POSITIVE (NEGATIVE); OCCULT BLOOD,URINE SMALL (NEGATIVE); PH,URINE 5.5 PH (5.0-7.5); PROTEIN,URINE TRACE mg/dL (NEGATIVE); UROBILINOGEN,URINE 0.2 (NORMAL) E.U./dL (NORMAL)
[2019-07-31 20:30] LABS: CLARITY,URINE SL. CLOUDY (CLEAR)
[2019-07-31] MEDS ORDERED: SULFAMETH/TRIMETH DS 800/160 MG TABLET PO STA (20:46)
--- NOTE | 2019-07-31 20:46 | ED Physician Documentation ---
PD HPI FEMALE - Stated complaint Stated Complaint: FEM - Chief complaint Chief Complaint: UTI - History obtained from History obtained from: Patient - History of Present Illness Timing - onset: How many days ago (4) Timing - duration: Days (4) Timing - details: Gradual onset, Still present Associated symptoms: Dysuria, Urinary frequency Similar symptoms before: Diagnosis (UTI) Recently seen: Not recently seen - Additional information Additional information: 74-year-old female with a prior history of ulcerative colitis who is status post colectomy has developed urinary urgency frequency dysuria over the past week she is had symptoms mostly since yesterday that of become intolerable. She has come out to the emergency department for evaluation. She has not had fever nausea or vomiting. Review of Systems Constitutional: denies: Fever Nose: denies: Congestion Respiratory: denies: Cough GI: denies: Abdominal Pain, Nausea, Vomiting : reports: Dysuria, Frequency PD PAST MEDICAL HISTORY - Past Medical History Past Medical History: Yes Cardiovascular: None Respiratory: COPD Neuro: None Endocrine/Autoimmune: None GI: Ulcerative colitis GRANULAR OPERATOR: None : None HEENT: None Psych: None Musculoskeletal: Osteoarthritis Derm: None - Past Surgical History Past Surgical History: Yes General: Appendectomy, Bowel surgery /GRANULAR OPERATOR: section - Present Medications Home Medications: Ambulatory Orders Medication Instructions Recorded Confirmed Aspirin [Darell] 325 mg PO DAILYWM #30 tablet 08/22/18 Atorvastatin [Lipitor] 80 mg PO QPM #30 tablet 08/22/18 Sulfamethoxazole/Trimethoprim 1 each PO BID #14 tablet 07/31/19 [Sulfamethoxazole-Tmp Ds Tablet] - Allergies Allergies/Adverse Reactions: Allergies Allergy/AdvReac Type Severity Reaction Status Date / Time ciprofloxacin [From Cipro] AdvReac Hives Verified 07/31/19 19:53 - Social History Does the pt smoke?: No Smoking Status: Never smoker Does the pt drink ETOH?: Yes Does the pt have substance abuse?: No - Immunizations Immunizations are current?: Yes - POLST Patient has POLST: No POLST Status: Full Code PD ED PE NORMAL - Vitals Vital signs reviewed: Yes (tachy and hypertensive mild ) - General General: Alert and oriented X 3, No acute distress - HEENT HEENT: Atraumatic, PERRL, EOMI - Neck Neck: Supple, no meningeal sign - Respiratory Respiratory: No respiratory distress - Back Back: No CVA TTP, No spinal TTP - Derm Derm: Normal color, Warm and dry, No rash - Extremities Extremities: No deformity, No edema - Neuro Neuro: Alert and oriented X 3, green building materials distributor 2-12 intact, No motor deficit, No sensory deficit, Normal speech Eye Opening: Spontaneous Motor: Obeys Commands Verbal: Oriented GCS Score: 15 - Psych Psych: Normal mood, Normal affect Results - Vitals Vitals: Vital Signs - 24 hr 07/31/19 07/31/19 19:53 20:00 Temperature 36.7 C Heart Rate 101 H Respiratory 14 17 Rate Blood Pressure 133/76 H O2 Saturation 98 Oxygen O2 Source Room air - Labs Labs: Laboratory Tests 07/31/19 20:00 Urine Color YELLOW Urine Clarity SL. CLOUDY Urine pH 5.5 Ur Specific [place] 1.025 Urine Protein TRACE Urine Glucose (UA) NEGATIVE Urine Ketones NEGATIVE Urine Occult Blood SMALL H Urine Nitrite POSITIVE H Urine Bilirubin NEGATIVE Urine Urobilinogen 0.2 (NORMAL) Ur Leukocyte Esterase SMALL H Ur Microscopic Review INDICATED Urine Culture Comments Not Reportable PD MEDICAL DECISION MAKING - ED course Complexity details: reviewed results, re-evaluated patient, considered differential, d/w patient ED course: 74-year-old female with urinary tract infection is administered sulfamethoxazole trimethoprim. She has no flank pain nausea or fever. Departure - Departure Disposition: 01 Home, Self Care Clinical Impression: Urinary tract infection Qualifiers: Urinary tract infection type: acute cystitis Hematuria presence: without hematuria Qualified Code(s): N30.00 - Acute cystitis without hematuria Condition: Stable Instructions: ED UTI Cystitis Female Follow-Up: SRAVAN FIGUEROA MD [Primary Care Provider] - Prescriptions: Sulfamethoxazole/Trimethoprim [Sulfamethoxazole-Tmp Ds Tablet] 1 each PO BID #14 tablet
[2019-07-31 20:52] LABS: BACTERIA,URINE Many /HPF (None Seen); RBC,URINE 0-5 /HPF (0-5); SQUAMOUS EPITHELIAL CELL,UR RARE Squamous (<= Few); WBC CLUMPS,URINE PRESENT
== END 2019-07-31 20:53 | disposition home or self-care (01) ==
LOC: ED 19:49
DX: N30.00 Acute cystitis without hematuria (principal); Z87.19 Personal history of other diseases of the digestive system; Z90.49 Acquired absence of other specified parts of digestive tract; Z79.82 Long term (current) use of aspirin
CPT/HCPCS: 81001; 87086; 87181; 99283; A9270; 81003

== ENCOUNTER 2019-08-26 08:27 | Outpatient (CLI) | payer MEDICARE, MEDICAID ==
[2019-08-26 18:09] LABS: BASOPHILS % (AUTO) 0.9 %; EOSINOPHILS % (AUTO) 0.7 %; HGB - HEMOGLOBIN 13.8 g/dL (12.0-16.0); MEAN CORPUSCULAR HEMOGLOBIN 30.4 pg (27.0-31.0); MEAN CORPUSCULAR HGB CONC 31.8 g/dL (32.0-36.0); MEAN CORPUSCULAR VOLUME 95.6 fL (81.0-99.0); MEAN PLATELET VOLUME 10.1 fL (7.9-10.8); MONOCYTES # (AUTO) 0.5 10^3/uL (0.0-1.0); MONOCYTES % (AUTO) 11.6 %; NEUTROPHILS # (AUTO) 2.8 10^3/uL (1.5-6.6); NEUTROPHILS % (AUTO) 63.9 %; PLT - PLATELET COUNT 241 10^3/uL (130-450); RED BLOOD COUNT 4.54 10^6/uL (4.20-5.40); RED CELL DISTRIBUTION WIDTH 13.3 % (12.0-15.0); WHITE BLOOD COUNT 4.4 x10^3/uL (4.8-10.8)
[2019-08-26 18:14] LABS: ALBUMIN 3.8 g/dL (3.2-5.5); ALKALINE PHOSPHATASE 80 IU/L (42-121); ALT ALANINE AMINOTRANSFERASE 21 IU/L (10-60); AST ASPARTATE AMINOTRANSFERASE 27 IU/L (10-42); BILIRUBIN,TOTAL 0.6 mg/dL (0.2-1.0); BUN - BLOOD UREA NITROGEN 14 mg/dL (6-20); CALCIUM 9.4 mg/dL (8.5-10.3); CARBON DIOXIDE - CO2 26 mmol/L (21-32); CHLORIDE 102 mmol/L (101-111); CHOL/HDL RATIO 3.2 (<4.4); CHOLESTEROL 214 mg/dL; CREATININE 0.7 mg/dL (0.4-1.0); GFR - MDRD 82 (>89); GLUCOSE 96 mg/dL (70-100); HDL CHOLESTEROL 67 mg/dL; LDL CHOLESTEROL,CALCULATED 102 mg/dL; LDL/HDL RATIO 1.5 (<4.4); SODIUM 137 mmol/L (135-145); TOTAL PROTEIN 7.6 g/dL (6.7-8.2); VLDL CHOLESTEROL 45 mg/dL
== END 2019-08-26 08:28 | disposition home or self-care (01) ==
LOC: LAB.S 08:27
PROVIDERS: ATTEND Registered Nurse
DX: E78.2 Mixed hyperlipidemia (principal); Z93.2 Ileostomy status; E55.9 Vitamin D deficiency, unspecified
CPT/HCPCS: 36415; 80053; 80061; 82306; 83721; 85025

== ENCOUNTER 2020-08-11 09:50 | Outpatient (CLI) | payer MEDICARE, MEDICAID ==
[2020-08-11 15:56] LABS: BASOPHILS % (AUTO) 0.6 %; EOSINOPHILS # (AUTO) 0.4 10^3/uL (0.0-0.7); EOSINOPHILS % (AUTO) 7.2 %; HGB - HEMOGLOBIN 14.3 g/dL (12.0-16.0); LYMPHOCYTES # (AUTO) 0.8 10^3/uL (1.5-3.5); LYMPHOCYTES % (AUTO) 16.8 %; MEAN CORPUSCULAR HEMOGLOBIN 30.1 pg (27.0-31.0); MEAN CORPUSCULAR HGB CONC 31.4 g/dL (32.0-36.0); MEAN PLATELET VOLUME 10.4 fL (7.9-10.8); MONOCYTES # (AUTO) 0.6 10^3/uL (0.0-1.0); MONOCYTES % (AUTO) 12.2 %; PLT - PLATELET COUNT 174 10^3/uL (130-450); RED BLOOD COUNT 4.75 10^6/uL (4.20-5.40); RED CELL DISTRIBUTION WIDTH 13.4 % (12.0-15.0); WHITE BLOOD COUNT 4.8 x10^3/uL (4.8-10.8)
[2020-08-11 16:11] LABS: ALBUMIN 3.7 g/dL (3.2-5.5); ALBUMIN/GLOBULIN RATIO 1.1 (1.0-2.2); ALKALINE PHOSPHATASE 83 IU/L (42-121); ALT ALANINE AMINOTRANSFERASE 28 IU/L (10-60); AST ASPARTATE AMINOTRANSFERASE 28 IU/L (10-42); BILIRUBIN,TOTAL 0.8 mg/dL (0.2-1.0); BUN - BLOOD UREA NITROGEN 19 mg/dL (6-20); CALCIUM 9.3 mg/dL (8.5-10.3); CARBON DIOXIDE - CO2 25 mmol/L (21-32); CHLORIDE 103 mmol/L (101-111); CHOL/HDL RATIO 3.8 (<4.4); CHOLESTEROL 246 mg/dL; CREATININE 0.7 mg/dL (0.4-1.0); GLUCOSE 89 mg/dL (70-100); HDL CHOLESTEROL 65 mg/dL; LDL CHOLESTEROL,CALCULATED 142 mg/dL; LDL/HDL RATIO 2.2 (<4.4); SODIUM 138 mmol/L (135-145); TOTAL PROTEIN 7.1 g/dL (6.7-8.2); VLDL CHOLESTEROL 39 mg/dL
== END 2020-08-11 09:51 | disposition home or self-care (01) ==
LOC: LAB.S 09:50
PROVIDERS: ATTEND Nurse Practitioner Family
DX: F51.04 Psychophysiologic insomnia (principal); E78.2 Mixed hyperlipidemia
CPT/HCPCS: 36415; 80053; 80061; 83721; 84443; 85025

== ENCOUNTER 2020-11-04 09:20 | Outpatient (CLI) | payer MEDICARE, MEDICAID ==
[2020-11-04 15:35] LABS: CHOL/HDL RATIO 4.5 (<4.4); CHOLESTEROL 260 mg/dL; HDL CHOLESTEROL 58 mg/dL; LDL CHOLESTEROL,CALCULATED 137 mg/dL; LDL/HDL RATIO 2.4 (<4.4); TRIGLYCERIDES 324 mg/dL; VLDL CHOLESTEROL 65 mg/dL
== END 2020-11-04 09:21 | disposition home or self-care (01) ==
LOC: LAB.S 09:20
PROVIDERS: ATTEND Nurse Practitioner Family
DX: E78.2 Mixed hyperlipidemia (principal)
CPT/HCPCS: 36415; 80061; 83721

== ENCOUNTER 2020-11-24 09:11 | Outpatient (CLI) | payer MEDICARE, MEDICAID ==
--- OUTSIDE RECORDS SUMMARY | 2020-12-01 22:41 | EXTERNAL MEDICAL SUMMARY RPT | Continuity of Care Document ---
:1945 Demographics Phone Unavailable Preferred Language Unknown Marital Status Unknown Anglican Affiliation Unknown Race Unknown Ethnic Group Unknown Author Organization [facility] Address [address] [id number] Phone Social History date description facility [phone]
== END 2020-11-24 09:12 | disposition critical access hospital (66) ==
LOC: EMS 09:11
PROVIDERS: ATTEND Emergency Medicine
DX: R10.30 Lower abdominal pain, unspecified (principal); R42 Dizziness and giddiness
CPT/HCPCS: A0425; A0429

== ENCOUNTER 2020-11-24 09:47 | Emergency (ER) | payer MEDICARE, MEDICAID ==
[2020-11-24] MEDS ORDERED: ONDANSETRON 4 MG/2 ML VIAL IVP STA (10:07)
[2020-11-24] MEDS ORDERED: KETOROLAC 30 MG/ML VIAL IVP STA (10:07)
[2020-11-24] MEDS ORDERED: SODIUM CHLORIDE 0.9% 1,000 ML IV STA (10:07)
--- NOTE | 2020-11-24 10:11 | ED Physician Documentation ---
PD HPI ABD PAIN - Stated complaint Stated Complaint: ABD PX - Chief complaint Chief Complaint: Abd Pain - History obtained from History obtained from: Patient, EMS - History of Present Illness Timing - onset: Enter time (0500), Today Timing - duration: Hours Timing - details: Abrupt onset, Still present Quality: Sharp, Pain Location: Suprapubic Radiation: No: Chest, , Lower back, Left flank, Left shoulder, Right flank, Right shoulder, Upper back Improved by: Other (nothing) Worsened by: Moving. No: Eating, Breathing, Position, Palpation Associated symptoms: Nausea, Vomiting, Other (syncope) Similar symptoms before: Has not had sx before Recently seen: Not recently seen - Additional information Additional information: 75-year-old female with a history of ulcerative colitis who has an ileostomy in place has developed acute suprapubic abdominal pain this morning at 5 AM. She does not have any radiation of the pain and she does not have any readily identifiable modifying factors. It is not tender to palpation she does have some increase in her pain when she moves about a bit. She does not have any known injury to the area she denies any urinary symptoms. She has had some cramping in her legs and her back this morning.She got up to go into the kitchen this morning and had a syncopal episode and vomited. Review of Systems Constitutional: denies: Fever Eyes: denies: Decreased vision Ears: denies: Ear pain Nose: denies: Congestion Throat: denies: Sore throat Cardiac: denies: Chest pain / pressure, Palpitations Respiratory: denies: Dyspnea, Cough GI: reports: Abdominal Pain, Nausea, Vomiting. denies: Diarrhea : denies: Dysuria, Frequency Skin: denies: Rash Musculoskeletal: denies: Neck pain, Back pain PD PAST MEDICAL HISTORY - Past Medical History Cardiovascular: None Respiratory: COPD Neuro: None Endocrine/Autoimmune: None GI: Ulcerative colitis RADIOLOGICAL TECHNOLOGIST: None : None HEENT: None Psych: None Musculoskeletal: Osteoarthritis Derm: None - Past Surgical History Past Surgical History: Yes General: Appendectomy, Bowel surgery /RADIOLOGICAL TECHNOLOGIST: section - Present Medications Home Medications: Ambulatory Orders Medication Instructions Recorded Confirmed Atorvastatin [Lipitor] 20 mg ORAL HS 11/24/20 11/24/20 HYDROcod/ACETAM 5/325 [Evarts 5/325] 1 - 2 tablet PO Q6H PRN #14 tablet 11/24/20 QUEtiapine [SEROquel] 25 mg PO QPM 11/24/20 11/24/20 - Allergies Allergies/Adverse Reactions: Allergies Allergy/AdvReac Type Severity Reaction Status Date / Time ciprofloxacin [From Cipro] AdvReac Hives Verified 11/24/20 09:51 - Social History Does the pt smoke?: No Smoking Status: Never smoker Does the pt drink ETOH?: Yes Does the pt have substance abuse?: No - Immunizations Immunizations are current?: Yes - POLST Patient has POLST: No POLST Status: Full Code PD ED PE NORMAL - Vitals Vital signs reviewed: Yes (hpyertensive ) - General General: Alert and oriented X 3, Well developed/nourished, Other (appears to be in pain ) - HEENT HEENT: Atraumatic, PERRL, EOMI - Neck Neck: Supple, no meningeal sign, No bony TTP - Cardiac Cardiac: RRR, No murmur - Respiratory Respiratory: No respiratory distress, Clear bilaterally - Abdomen Abdomen: Normal bowel sounds, Soft, Non tender, Non distended, No organomegaly - Back Back: No CVA TTP, No spinal TTP - Derm Derm: Normal color, Warm and dry, No rash - Extremities Extremities: No deformity, No edema - Neuro Neuro: Alert and oriented X 3, print line operator 2-12 intact, No motor deficit, No sensory deficit, Normal speech Eye Opening: Spontaneous Motor: Obeys Commands Verbal: Oriented GCS Score: 15 - Psych Psych: Normal mood, Normal affect Results - Vitals Vitals: Vital Signs - 24 hr 11/24/20 11/24/20 11/24/20 09:51 10:04 11:55 Temperature 36.5 C 36.7 C Heart Rate 64 71 81 Respiratory 18 19 22 Rate Blood Pressure 135/77 H 136/70 H 106/67 O2 Saturation 98 99 99 11/24/20 12:53 Temperature 36.8 C Heart Rate 70 Respiratory 18 Rate Blood Pressure 111/58 L O2 Saturation 98 Oxygen O2 Source Room air - Labs Labs: Laboratory Tests 11/24/20 11/24/20 11/24/20 10:18 10:18 10:18 WBC 10.7 RBC 4.46 Hgb 13.7 Hct 42.4 MCV 95.1 MCH 30.7 MCHC 32.3 RDW 13.2 Plt Count 171 MPV 9.7 Neut # (Auto) 9.7 H Lymph # (Auto) 0.3 L [place] # (Auto) 0.6 Eos # (Auto) 0.0 Baso # (Auto) 0.0 Absolute Nucleated RBC 0.00 Nucleated RBC % 0.0 Sodium 140 Potassium 3.7 Chloride 104 Carbon Dioxide 22 Anion Gap 14.0 H BUN 22 H Creatinine 0.9 Estimated GFR (MDRD) 61 L Glucose 143 H Lactic Acid 1.4 Calcium 9.8 Total Bilirubin 0.5 AST 30 ALT 28 Alkaline Phosphatase 72 Troponin I High Sens Total Protein 7.3 Albumin 4.0 Globulin 3.3 Albumin/Globulin Ratio 1.2 Lipase 27 Urine Color Urine Clarity Urine pH Ur Specific [place] Urine Protein Urine Glucose (UA) Urine Ketones Urine Occult Blood Urine Nitrite Urine Bilirubin Urine Urobilinogen Ur Leukocyte Esterase Urine RBC Urine WBC Ur Squamous Epith Cells Urine Bacteria Urine Mucus Ur Microscopic Review Urine Culture Comments 11/24/20 11/24/20 10:18 12:56 WBC RBC Hgb Hct MCV MCH MCHC RDW Plt Count MPV Neut # (Auto) Lymph # (Auto) [place] # (Auto) Eos # (Auto) Baso # (Auto) Absolute Nucleated RBC Nucleated RBC % Sodium Potassium Chloride Carbon Dioxide Anion Gap BUN Creatinine Estimated GFR (MDRD) Glucose Lactic Acid Calcium Total Bilirubin AST ALT Alkaline Phosphatase Troponin I High Sens 4.8 Total Protein Albumin Globulin Albumin/Globulin Ratio Lipase Urine Color BROWN Urine Clarity SL. CLOUDY Urine pH 5.5 Ur Specific [place] >=1.030 H Urine Protein 30 H Urine Glucose (UA) NEGATIVE Urine Ketones NEGATIVE Urine Occult Blood LARGE H Urine Nitrite NEGATIVE Urine Bilirubin NEGATIVE Urine Urobilinogen 0.2 (NORMAL) Ur Leukocyte Esterase NEGATIVE Urine RBC TNTC H Urine WBC 0-3 Ur Squamous Epith Cells FEW Squamous Urine Bacteria None Seen Urine Mucus Few Strands Ur Microscopic Review INDICATED Urine Culture Comments NOT INDICATED - Rads (name of study) CT ab pel without Radiology: Prelim report reviewed, Final report received (. Focal soft tissue density involving the lateral left breast favored to represent confluence of dense fibroglandular tissue. This is incompletely imaged. Recommend outpatient mammography for further evaluation. Atherosclerosis.), EMP read indepedently, See rad report Procedures - Bedside sono Bedside sono by EMP: With use of bedside ultrasound the right kidney is imaged there is evidence of hydronephrosis. The kidney is sonographically nontender the left kidney is imaged it is sonographically nontender there is no significant hydro-. - IVC sono (time) 1000 Bedside IVC sono: IVC measures (cm) (0.75), Dehydration (est 2+ liter deficit) PD MEDICAL DECISION MAKING - ED course Complexity details: reviewed results, re-evaluated patient, considered differential, d/w patient ED course: 75-year-old female presents to the emergency department with acute nonlocalizing abdominal pain without modifying factors. She is ultimately found to have a 4 mm mid ureteral stone and has some resolution of her pain while she is here in the emergency department. She was administered Toradol intravenously. Departure - Departure Disposition: 01 Home, Self Care Clinical Impression: Dehydration, Ureterolithiasis Condition: Stable Instructions: ED Dehydration, ED Stone Renal W Colic Follow-Up: SYED DAVE ARNP [Primary Care Provider] - Prescriptions: HYDROcod/ACETAM 5/325 [[place] 5/325] 1 - 2 tablet PO Q6H PRN #14 tablet PRN Reason: Pain Discharge Date/Time: 11/24/20 13:57
[2020-11-24 10:27] LABS: BASOPHILS % (AUTO) 0.2 %; EOSINOPHILS % (AUTO) 0.1 %; HCT - HEMATOCRIT 42.4 % (37.0-47.0); HGB - HEMOGLOBIN 13.7 g/dL (12.0-16.0); LYMPHOCYTES # (AUTO) 0.3 10^3/uL (1.5-3.5); MEAN CORPUSCULAR HEMOGLOBIN 30.7 pg (27.0-31.0); MEAN CORPUSCULAR HGB CONC 32.3 g/dL (32.0-36.0); MEAN CORPUSCULAR VOLUME 95.1 fL (81.0-99.0); MEAN PLATELET VOLUME 9.7 fL (7.9-10.8); MONOCYTES # (AUTO) 0.6 10^3/uL (0.0-1.0); MONOCYTES % (AUTO) 5.2 %; NEUTROPHILS # (AUTO) 9.7 10^3/uL (1.5-6.6); NEUTROPHILS % (AUTO) 90.8 %; PLT - PLATELET COUNT 171 10^3/uL (130-450); RED BLOOD COUNT 4.46 10^6/uL (4.20-5.40); RED CELL DISTRIBUTION WIDTH 13.2 % (12.0-15.0); WHITE BLOOD COUNT 10.7 x10^3/uL (4.8-10.8)
[2020-11-24 10:41] LABS: ALBUMIN/GLOBULIN RATIO 1.2 (1.0-2.2); BILIRUBIN,TOTAL 0.5 mg/dL (0.2-1.0); CALCIUM 9.8 mg/dL (8.5-10.3); CREATININE 0.9 mg/dL (0.4-1.0); POTASSIUM 3.7 mmol/L (3.5-5.0); TOTAL PROTEIN 7.3 g/dL (6.7-8.2)
--- NOTE | 2020-11-24 11:51 | CT Report ---
PROCEDURE: Abdomen/Pelvis WO INDICATIONS: abdominal pain TECHNIQUE: Noncontrast 5 mm thick sections acquired from the diaphragms to the symphysis. 5 mm coronal and sagi ttal reformats were then performed. For radiation dose reduction, the following was used: automated exposure control, adjustment of mA and/or kV according to patient size. COMPARISON: None. FINDINGS: Image quality: Excellent. ABDOMEN: Lung bases: Lung bases are clear. Heart size is normal. Small hiatal hernia. Focal density in the lateral aspect of the left breast likely representing confluence of denser fibroglandular tissue. Thi s is incompletely imaged. Solid organs: Liver and spleen are normal in size. Gallbladder is unremarkable Pancreas is normal in contours. No adrenal nodules. There is a 4 mm obstructing left mid ureteral stone with mild left hydroureteronephrosis. There is a 6 mm x 3 mm renal stone seen in the left kidney. Right kidney is n ormal in size without hydronephrosis or nephrolithiasis. Right ureter is normal in course and caliber . No visualized urinary bladder stones. Peritoneum and bowel: Unenhanced bowel loops demonstrate normal wall thickness and caliber. No free fluid or air. Left lower quadrant ostomy is present. No evidence for abnormal peristomal fluid colle ction or herniation. No evidence for obstruction proximally. Surgical anastomotic suture line noted i n the left lower pelvis. Nodes and vessels: No retroperitoneal or mesenteric adenopathy by size criteria. Aorta and inferior vena cava are normal in caliber. Atherosclerotic calcifications of the abdominal aorta without aneu rysmal dilatation. Miscellaneous: No ventral hernias. PELVIS: Genitourinary: Bladder wall thickness is normal. No urinary bladder stones visualized. Miscellaneous: No inguinal hernias or pelvic adenopathy. Bones: No suspicious bony lesions. No acute vertebral body compression fractures. Multilevel spond ylitic changes seen throughout the imaged spine. IMPRESSION: 1. Left-sided nephrolithiasis with a 4 mm obstructing left mid ureteral stone. There is mild associat ed left hydroureteronephrosis. 2. No evidence for bowel obstruction or other acute inflammatory processes in the abdomen or pelvis. 3. Focal soft tissue density involving the lateral left breast favored to represent confluence of den se fibroglandular tissue. This is incompletely imaged. Recommend outpatient mammography for further e valuation. 4. Atherosclerosis. Reviewed by: Gareth Hewitt MD on 11/24/2020 11:50 AM PDT Approved by: Gareth Hewitt MD on 11/24/2020 11:50 AM PDT Station ID: [id number]
[2020-11-24 12:53] VITALS: BP 111/58
[2020-11-24 12:59] LABS: BILIRUBIN,URINE NEGATIVE (NEGATIVE); GLUCOSE, URINE (UA) NEGATIVE (NEGATIVE); KETONES,URINE (UA) NEGATIVE (NEGATIVE); LEUKOCYTE ESTERASE, URINE NEGATIVE (NEGATIVE); NITRITE,URINE NEGATIVE (NEGATIVE); OCCULT BLOOD,URINE LARGE (NEGATIVE); PH,URINE 5.5 PH (5.0-7.5); PROTEIN,URINE 30 mg/dL (NEGATIVE); UROBILINOGEN,URINE 0.2 (NORMAL) E.U./dL (NORMAL)
[2020-11-24 13:01] LABS: CLARITY,URINE SL. CLOUDY (CLEAR)
[2020-11-24 13:06] LABS: BACTERIA,URINE None Seen /HPF (None Seen); MUCUS,URINE Few Strands; RBC,URINE TNTC /HPF (0-5); SQUAMOUS EPITHELIAL CELL,UR FEW Squamous (<= Few); WBC,URINE 0-3 /HPF (0-5)
== END 2020-11-24 13:57 | disposition home or self-care (01) ==
LOC: EDUNIT# → ED 09:47
DX: N13.2 Hydronephrosis with renal and ureteral calculous obstruction (principal); E86.0 Dehydration; R55 Syncope and collapse; Z87.19 Personal history of other diseases of the digestive system; Z93.2 Ileostomy status
CPT/HCPCS: 36415; 80053; 81001; 81003; 83605; 83690; 84484; 85025; 87086; 93005; 96361; 96374; 96375; 99284

== ENCOUNTER 2022-09-01 11:04 | Outpatient (CLI) | payer MEDICARE, MEDICAID ==
[2022-09-01 15:24] LABS: ALBUMIN 3.5 g/dL (3.2-5.5); ALKALINE PHOSPHATASE 79 IU/L (42-121); ALT ALANINE AMINOTRANSFERASE 25 IU/L (10-60); AST ASPARTATE AMINOTRANSFERASE 27 IU/L (10-42); BILIRUBIN,TOTAL 0.6 mg/dL (0.2-1.0); BUN - BLOOD UREA NITROGEN 11 mg/dL (6-20); CALCIUM 9.3 mg/dL (8.5-10.3); CARBON DIOXIDE - CO2 28 mmol/L (21-32); CHLORIDE 103 mmol/L (101-111); CHOL/HDL RATIO 3.6 (<4.4); CHOLESTEROL 236 mg/dL; CREATININE 0.7 mg/dL (0.4-1.0); GFR - MDRD 82 (>89); GLUCOSE 89 mg/dL (70-100); HDL CHOLESTEROL 66 mg/dL; LDL CHOLESTEROL,CALCULATED 130 mg/dL; POTASSIUM 4.2 mmol/L (3.5-5.0); SODIUM 138 mmol/L (135-145); TOTAL PROTEIN 7.1 g/dL (6.7-8.2); TRIGLYCERIDES 200 mg/dL; VLDL CHOLESTEROL 40 mg/dL
== END 2022-09-01 11:05 | disposition home or self-care (01) ==
LOC: LAB.S 11:04
PROVIDERS: ATTEND Nurse Practitioner Family
DX: E78.2 Mixed hyperlipidemia (principal)
CPT/HCPCS: 36415; 80053; 80061; 83721

== ENCOUNTER 2023-01-12 18:48 | Outpatient (CLI) | payer MEDICARE, MEDICAID | END 2023-01-12 23:59 | disposition left against medical advice (07) | LOC: EMS 18:48 | DX: R07.9 Chest pain, unspecified (principal) ==

== ENCOUNTER 2023-09-15 10:32 | Outpatient (CLI) | payer MEDICARE, MEDICAID ==
[2023-09-15 15:17] LABS: BASOPHILS # (AUTO) 0.1 10^3/uL (0.0-0.1); BASOPHILS % (AUTO) 0.8 %; EOSINOPHILS # (AUTO) 0.5 10^3/uL (0.0-0.7); EOSINOPHILS % (AUTO) 7.6 %; HCT - HEMATOCRIT 44.6 % (37.0-47.0); LYMPHOCYTES # (AUTO) 1.1 10^3/uL (1.5-3.5); LYMPHOCYTES % (AUTO) 19.2 %; MEAN CORPUSCULAR HEMOGLOBIN 30.3 pg (27.0-31.0); MEAN CORPUSCULAR HGB CONC 31.4 g/dL (32.0-36.0); MEAN CORPUSCULAR VOLUME 96.5 fL (81.0-99.0); MEAN PLATELET VOLUME 10.2 fL (7.9-10.8); MONOCYTES # (AUTO) 0.6 10^3/uL (0.0-1.0); MONOCYTES % (AUTO) 9.6 %; NEUTROPHILS # (AUTO) 3.7 10^3/uL (1.5-6.6); NEUTROPHILS % (AUTO) 62.5 %; PLT - PLATELET COUNT 184 10^3/uL (130-450); RED BLOOD COUNT 4.62 10^6/uL (4.20-5.40); RED CELL DISTRIBUTION WIDTH 13.3 % (12.0-15.0)
[2023-09-15 15:35] LABS: ALBUMIN/GLOBULIN RATIO 1.7 (1.0-2.2); ALKALINE PHOSPHATASE 75 IU/L (42-121); ALT ALANINE AMINOTRANSFERASE 19 IU/L (10-60); AST ASPARTATE AMINOTRANSFERASE 19 IU/L (10-42); BILIRUBIN,TOTAL 0.5 mg/dL (0.2-1.0); BUN - BLOOD UREA NITROGEN 12 mg/dL (6-20); CALCIUM 9.3 mg/dL (8.5-10.3); CARBON DIOXIDE - CO2 27 mmol/L (21-32); CHLORIDE 105 mmol/L (101-111); CHOL/HDL RATIO 3.8 (<4.4); CHOLESTEROL 243 mg/dL; CREATININE 0.7 mg/dL (0.6-1.3); GFR - MDRD 81 (>89); GLUCOSE 84 mg/dL (74-104); HDL CHOLESTEROL 64 mg/dL; LDL CHOLESTEROL,CALCULATED 131 mg/dL; POTASSIUM 4.1 mmol/L (3.5-4.5); SODIUM 139 mmol/L (135-145); TOTAL PROTEIN 6.4 g/dL (6.4-8.9); TRIGLYCERIDES 241 mg/dL (48-352); VLDL CHOLESTEROL 48 mg/dL
[2023-09-15 15:48] LABS: THYROID STIMULATING HORMONE 2.73 uIU/mL (0.34-5.60)
[2023-09-15 20:40] LABS: ESTIMATED AVERAGE GLUCOSE 108 mg/dL (70-100); HEMOGLOBIN A1c% 5.4 % (4.27-6.07)
== END 2023-09-15 10:33 | disposition home or self-care (01) ==
LOC: LAB.S 10:32
PROVIDERS: ATTEND Internal Medicine
DX: L80 Vitiligo (principal); Z93.2 Ileostomy status
CPT/HCPCS: 36415; 80053; 80061; 83036; 83721; 84443; 85025